=== PATIENT | male | born 1955 | race Caucasian/White ===

== ENCOUNTER 2017-01-24 07:50 | Outpatient (CLI) | payer OTHER | END 2017-01-24 07:51 | disposition home or self-care (01) | DX: Z00.00 Encounter for general adult medical examination without abnormal findings (principal); K76.0 Fatty (change of) liver, not elsewhere classified; Z12.5 Encounter for screening for malignant neoplasm of prostate; K21.9 Gastro-esophageal reflux disease without esophagitis ==

== ENCOUNTER 2017-09-13 08:30 | Outpatient (CLI) | payer OTHER ==
--- NOTE | 2017-09-14 08:35 | XRAY Report ---
EXAM: LUMBOSACRAL SPINE RADIOGRAPHY EXAM DATE: 09/13/2017 10:25 AM. CLINICAL HISTORY: LOW BACK PAIN, CHRONIC. COMPARISONS: None. TECHNIQUE: 3 views. FINDINGS: Alignment: Normal. No spondylolisthesis or scoliosis. Bones: Five uvh-smy-[id number] lumbar vertebral bodies are present. No fractures or bone lesions. Spina bifida occulta at L5. Disks: Disk heights are maintained. Facets: No degenerative changes. Sacroiliac Joints: Unremarkable. Soft Tissues: Phleboliths within the pelvis. The visualized bowel gas pattern is normal. IMPRESSION: Spina bifida occulta at L5. Otherwise, lumbar spine is unremarkable. [facility] Referring Provider Line: [phone] SITE ID: [id number]
== END 2017-09-13 23:59 | disposition home or self-care (01) ==
LOC: DI 08:30
PROVIDERS: ATTEND Family Medicine
DX: Q76.0 Spina bifida occulta (principal)
CPT/HCPCS: 72100

== ENCOUNTER 2017-09-22 16:28 | Outpatient (CLI) | payer OTHER ==
--- NOTE | 2017-09-22 17:46 | MRI Report ---
EXAM: MRI LUMBAR SPINE WITHOUT CONTRAST EXAM DATE: 09/22/2017 05:17 PM. CLINICAL HISTORY: FOOT DROP, PARESTHESIA FEET, LOW BACK PAIN. COMPARISON: Lumbar radiograph 09/13/2017. TECHNIQUE: Multiplanar, multisequence T1-weighted and fluid-sensitive sequences of the lumbar spine f rom T12 to S1 without contrast. Other: None. FINDINGS: Spinal Cord: The conus terminates at T12. The conus medullaris and cauda equina are unremarkable. Alignment: No scoliosis or spondylolisthesis. Bone Marrow: Five snp-upr-mdfriqi lumbar vertebral bodies are assumed. No gross fractures or bone les ions. Typical hemangioma in the inferior L4 vertebrae and at inferior T11 vertebrae. Disk Levels/Facets: T12-L1: Unremarkable. L1-L2: Unremarkable. L2-L3: Disk desiccation. Mild bilateral facet arthropathy. No significant canal or subarticular narro wing. Minimal foraminal narrowing. L3-L4: Disk desiccation. Circumferential bulge, mild bilateral facet arthropathy and ligamentum flavu m thickening. No significant canal or subarticular narrowing. Mild bilateral foraminal narrowing. L4-L5: Disk desiccation and circumferential bulge. Mild bilateral facet arthropathy and ligament flav um thickening. Mild bilateral foraminal narrowing. No significant subarticular narrowing. No signific ant canal narrowing. L5-S1: Unremarkable. Musculature: Normal. No edema or fatty atrophy. Other: The partially visualized retroperitoneum is unremarkable. IMPRESSION: 1. Mild degenerative changes at L2-L3, L3-L4 and L4-L5, most pronounced at L4-L5. 2. At L4-L5, mild disk height loss and disk desiccation, circumferential bulge and mild facet arthrop athy. Mild bilateral foraminal narrowing. Comment: The following findings are so common in adults without low back pain that while we report th eir presence, they must be interpreted with caution and in the context of the clinical situation. (Re bassam Kent et al, Spine 2001) Prevalence of findings in patients without low back pain: Disk degeneration (any evidence): 92% Disk desiccation/T2 signal loss: 83% Disk height loss: 56% Disk bulge: 64% Disk protrusion: 32% Annular tear/high intensity zone: 38% [facility] Referring Provider Line: [phone] SITE ID: [id number]
== END 2017-09-22 16:29 | disposition home or self-care (01) ==
LOC: DI 16:28
PROVIDERS: ATTEND Family Medicine
DX: M47.896 Other spondylosis, lumbar region (principal); M51.36 Other intervertebral disc degeneration, lumbar region
CPT/HCPCS: 72148

== ENCOUNTER 2018-04-14 08:00 | Outpatient (CLI) | payer OTHER ==
[2018-04-14 12:52] LABS: BASOPHILS % (AUTO) 0.9 %; EOSINOPHILS # (AUTO) 0.1 10^3/uL (0.0-0.7); EOSINOPHILS % (AUTO) 1.8 %; HGB - HEMOGLOBIN 14.8 g/dL (14.0-18.0); LYMPHOCYTES # (AUTO) 1.6 10^3/uL (1.5-3.5); LYMPHOCYTES % (AUTO) 36.4 %; MEAN CORPUSCULAR HEMOGLOBIN 33.8 pg (27.0-31.0); MEAN CORPUSCULAR HGB CONC 34.5 g/dL (32.0-36.0); MEAN CORPUSCULAR VOLUME 97.9 fL (80.0-94.0); MEAN PLATELET VOLUME 8.2 fL (7.4-11.4); MONOCYTES # (AUTO) 0.4 10^3/uL (0.0-1.0); MONOCYTES % (AUTO) 9.7 %; NEUTROPHILS # (AUTO) 2.2 10^3/uL (1.5-6.6); NEUTROPHILS % (AUTO) 51.2 %; PLT - PLATELET COUNT 149 10^3/uL (130-450); RED BLOOD COUNT 4.38 10^6/uL (4.70-6.10); RED CELL DISTRIBUTION WIDTH 13.1 % (12.0-15.0); WHITE BLOOD COUNT 4.3 x10^3/uL (4.8-10.8)
[2018-04-14 13:05] LABS: ALBUMIN 3.8 g/dL (3.2-5.5); ALBUMIN/GLOBULIN RATIO 1.4 (1.0-2.2); ALKALINE PHOSPHATASE 36 IU/L (42-121); ALT ALANINE AMINOTRANSFERASE 24 IU/L (10-60); AST ASPARTATE AMINOTRANSFERASE 30 IU/L (10-42); BILIRUBIN,TOTAL 0.8 mg/dL (0.2-1.0); BUN - BLOOD UREA NITROGEN 11 mg/dL (6-20); CALCIUM 8.9 mg/dL (8.5-10.3); CARBON DIOXIDE - CO2 28 mmol/L (21-32); CHLORIDE 104 mmol/L (101-111); CHOL/HDL RATIO 1.9 (<5.0); CHOLESTEROL 133 mg/dL; CREATININE 0.9 mg/dL (0.6-1.2); GFR - MDRD 85 (>89); GLUCOSE 108 mg/dL (70-100); HDL CHOLESTEROL 70 mg/dL; SODIUM 138 mmol/L (135-145); TOTAL PROTEIN 6.6 g/dL (6.7-8.2)
[2018-04-14 13:08] LABS: THYROID STIMULATING HORMONE 2.55 uIU/mL (0.34-5.60)
[2018-04-14 13:21] LABS: HB2 TOTAL 15.7 g/dL; HEMOGLOBIN A1C 0.6 g/dL; HEMOGLOBIN A1C % 5.6 % (4.6-6.2)
[2018-04-14 13:35] LABS: LDL CHOLESTEROL,DIRECT 50 mg/dL; LDLD/HDL RATIO 0.7 (<3.6)
== END 2018-04-14 08:01 | disposition home or self-care (01) ==
LOC: LAB.WCP 08:00
PROVIDERS: ATTEND Family Medicine
DX: Z00.00 Encounter for general adult medical examination without abnormal findings (principal); Z13.220 Encounter for screening for lipoid disorders; K76.0 Fatty (change of) liver, not elsewhere classified; R73.01 Impaired fasting glucose; R20.9 Unspecified disturbances of skin sensation; Z12.5 Encounter for screening for malignant neoplasm of prostate
CPT/HCPCS: 36415; 80053; 80061; 82607; 83036; 83721; 84153; 84443; 85025

== ENCOUNTER 2018-05-14 08:40 | Outpatient (CLI) | payer OTHER ==
[2018-05-14 13:35] LABS: BASOPHILS % (AUTO) 0.8 %; EOSINOPHILS # (AUTO) 0.1 10^3/uL (0.0-0.7); HGB - HEMOGLOBIN 14.8 g/dL (14.0-18.0); LYMPHOCYTES # (AUTO) 1.5 10^3/uL (1.5-3.5); LYMPHOCYTES % (AUTO) 31.3 %; MEAN CORPUSCULAR HEMOGLOBIN 33.7 pg (27.0-31.0); MEAN CORPUSCULAR HGB CONC 35.1 g/dL (32.0-36.0); MEAN PLATELET VOLUME 8.2 fL (7.4-11.4); MONOCYTES # (AUTO) 0.5 10^3/uL (0.0-1.0); MONOCYTES % (AUTO) 10.9 %; NEUTROPHILS # (AUTO) 2.5 10^3/uL (1.5-6.6); PLT - PLATELET COUNT 140 10^3/uL (130-450); RED CELL DISTRIBUTION WIDTH 13.2 % (12.0-15.0); WHITE BLOOD COUNT 4.7 x10^3/uL (4.8-10.8)
== END 2018-05-14 08:41 ==
LOC: LAB.WCP 08:40
PROVIDERS: ATTEND Family Medicine
DX: R79.89 Other specified abnormal findings of blood chemistry (principal)
CPT/HCPCS: 36415; 85025

== ENCOUNTER 2018-12-28 08:00 | Outpatient (CLI) | payer OTHER ==
[2018-12-28 12:21] LABS: BASOPHILS % (AUTO) 0.5 %; EOSINOPHILS % (AUTO) 0.5 %; HGB - HEMOGLOBIN 15.4 g/dL (14.0-18.0); LYMPHOCYTES % (AUTO) 31.2 %; MEAN CORPUSCULAR HEMOGLOBIN 32.8 pg (27.0-31.0); MEAN CORPUSCULAR HGB CONC 34.8 g/dL (32.0-36.0); MEAN CORPUSCULAR VOLUME 94.5 fL (80.0-94.0); MEAN PLATELET VOLUME 7.7 fL (7.4-11.4); MONOCYTES # (AUTO) 0.6 10^3/uL (0.0-1.0); MONOCYTES % (AUTO) 10.3 %; NEUTROPHILS # (AUTO) 3.6 10^3/uL (1.5-6.6); NEUTROPHILS % (AUTO) 57.5 %; PLT - PLATELET COUNT 165 10^3/uL (130-450); RED CELL DISTRIBUTION WIDTH 13.1 % (12.0-15.0); WHITE BLOOD COUNT 6.3 x10^3/uL (4.8-10.8)
[2018-12-28 12:58] LABS: ALBUMIN 3.8 g/dL (3.2-5.5); ALBUMIN/GLOBULIN RATIO 1.2 (1.0-2.2); ALKALINE PHOSPHATASE 31 IU/L (42-121); ALT ALANINE AMINOTRANSFERASE 21 IU/L (10-60); AST ASPARTATE AMINOTRANSFERASE 24 IU/L (10-42); BILIRUBIN,TOTAL 0.9 mg/dL (0.2-1.0); BUN - BLOOD UREA NITROGEN 12 mg/dL (6-20); CALCIUM 9.5 mg/dL (8.5-10.3); CARBON DIOXIDE - CO2 26 mmol/L (21-32); CHLORIDE 94 mmol/L (101-111); CHOL/HDL RATIO 1.7 (<5.0); CHOLESTEROL 144 mg/dL; CREATININE 0.8 mg/dL (0.6-1.2); GFR - MDRD 97 (>89); GLUCOSE 108 mg/dL (70-100); HDL CHOLESTEROL 85 mg/dL; SODIUM 130 mmol/L (135-145); TOTAL PROTEIN 6.9 g/dL (6.7-8.2)
[2018-12-28 13:10] LABS: HB2 TOTAL 17.2 g/dL; HEMOGLOBIN A1C 0.71 g/dL; HEMOGLOBIN A1C % 5.9 % (4.6-6.2)
[2018-12-28 13:23] LABS: LDL CHOLESTEROL,DIRECT 51 mg/dL; LDLD/HDL RATIO 0.6 (<3.6)
== END 2018-12-28 23:59 | disposition home or self-care (01) ==
LOC: LAB.WCP 08:00
PROVIDERS: ATTEND Family Medicine
DX: I10 Essential (primary) hypertension (principal); R73.01 Impaired fasting glucose; Z12.5 Encounter for screening for malignant neoplasm of prostate
CPT/HCPCS: 36415; 80053; 80061; 82306; 83036; 83721; 83970; 84153; 85025

== ENCOUNTER 2019-02-01 09:33 | Outpatient (CLI) | payer OTHER | END 2019-02-01 09:34 | disposition home or self-care (01) | LOC: LAB.WCP 09:33 | PROVIDERS: ATTEND Family Medicine | DX: R20.2 Paresthesia of skin (principal) | CPT/HCPCS: 36415; 84443 ==

== ENCOUNTER 2019-11-22 08:00 | Outpatient (CLI) | payer MEDICARE, OTHER ==
[2019-11-22 11:44] LABS: BASOPHILS % (AUTO) 0.8 %; EOSINOPHILS # (AUTO) 0.1 10^3/uL (0.0-0.7); EOSINOPHILS % (AUTO) 1.5 %; HGB - HEMOGLOBIN 15.7 g/dL (14.0-18.0); LYMPHOCYTES # (AUTO) 1.5 10^3/uL (1.5-3.5); LYMPHOCYTES % (AUTO) 37.6 %; MEAN CORPUSCULAR HEMOGLOBIN 34.5 pg (27.0-31.0); MEAN CORPUSCULAR HGB CONC 35.5 g/dL (32.0-36.0); MEAN CORPUSCULAR VOLUME 97.1 fL (80.0-94.0); MONOCYTES # (AUTO) 0.4 10^3/uL (0.0-1.0); MONOCYTES % (AUTO) 10.6 %; NEUTROPHILS % (AUTO) 49.2 %; PLT - PLATELET COUNT 137 10^3/uL (130-450); RED BLOOD COUNT 4.55 10^6/uL (4.70-6.10)
[2019-11-22 12:42] LABS: ALBUMIN/GLOBULIN RATIO 1.4 (1.0-2.2); ALKALINE PHOSPHATASE 31 IU/L (42-121); ALT ALANINE AMINOTRANSFERASE 27 IU/L (10-60); AST ASPARTATE AMINOTRANSFERASE 29 IU/L (10-42); BILIRUBIN,TOTAL 0.8 mg/dL (0.2-1.0); BUN - BLOOD UREA NITROGEN 12 mg/dL (6-20); CALCIUM 9.3 mg/dL (8.5-10.3); CARBON DIOXIDE - CO2 32 mmol/L (21-32); CHLORIDE 91 mmol/L (101-111); CHOLESTEROL 134 mg/dL; GFR - MDRD 75 (>89); GLUCOSE 117 mg/dL (70-100); HDL CHOLESTEROL 67 mg/dL; LDL CHOLESTEROL,CALCULATED 57 mg/dL; LDL/HDL RATIO 0.9 (<3.6); SODIUM 131 mmol/L (135-145); TOTAL PROTEIN 6.9 g/dL (6.7-8.2); VLDL CHOLESTEROL 10 mg/dL
[2019-11-22 13:21] LABS: HB2 TOTAL 16.1 g/dL; HEMOGLOBIN A1C 0.65 g/dL; HEMOGLOBIN A1C % 5.8 % (4.6-6.2)
== END 2019-11-22 23:59 | disposition home or self-care (01) ==
LOC: LAB.WCP 08:00
PROVIDERS: ATTEND Family Medicine
DX: I10 Essential (primary) hypertension (principal); R73.01 Impaired fasting glucose
CPT/HCPCS: 36415; 80053; 80061; 83036; 83721; 85025

== ENCOUNTER 2021-05-16 14:44 | Outpatient (CLI) | payer MEDICARE, OTHER ==
--- NOTE | 2021-05-16 16:39 | XRAY Report ---
PROCEDURE: Foot 3 View LT INDICATIONS: ACUTE LT FOOT PX TECHNIQUE: 3 views of the foot were acquired. COMPARISON: None FINDINGS: Bones: No fractures or dislocations. No suspicious bony lesions. Severe first MTP degenerative arth ritis. Soft tissues: No tibiotalar joint effusion. Achilles tendon appears normal. IMPRESSION: Severe first MTP degenerative arthritis. No evidence acute bony abnormality of the left foot. If clinical suspicion and/or symptoms persist, further assessment with repeat plain films or advanced imaging (e.g., CT, MRI, or bone scan) may be helpful for further assessment. Reviewed by: Micheal Rizvi MD on 05/16/2021 4:38 PM PDT Approved by: Micheal Rizvi MD on 05/16/2021 4:38 PM PDT Station ID: [id number]
== END 2021-05-16 14:45 | disposition home or self-care (01) ==
LOC: DI 14:44
PROVIDERS: ATTEND Podiatrist
DX: M19.072 Primary osteoarthritis, left ankle and foot (principal)

== ENCOUNTER 2021-07-31 00:48 | Outpatient (CLI) | payer MEDICARE, OTHER | END 2021-07-31 00:49 | disposition critical access hospital (66) | LOC: EMS 00:48 | DX: S00.211A Abrasion of right eyelid and periocular area, initial encounter (principal); W18.30XA Fall on same level, unspecified, initial encounter; Y92.009 Unspecified place in unspecified non-institutional (private) residence as the place of occurrence of the external cause | CPT/HCPCS: A0425; A0429 ==

== ENCOUNTER 2021-07-31 01:06 | Emergency (ER) | payer MEDICARE, OTHER ==
[2021-07-31] MEDS ORDERED: SODIUM CHLORIDE 0.9% 1,000 ML IV STA ×2 (01:14→02:09)
[2021-07-31] MEDS ORDERED: THIAMINE INJ 200 MG in SODIUM CHLORIDE 0.9% 50 ML IV STA (01:14)
[2021-07-31] MEDS ORDERED: BACITRACIN ZINC OINT 1 PACKET TOP STA (01:15)
[2021-07-31] MEDS ORDERED: TETANUS/DIPHTHERIA/PERTUSSIS 0.5 ML SYRINGE IM ONE (01:15)
--- NOTE | 2021-07-31 01:15 | ED Physician Documentation ---
History of Present Illness - Stated complaint Stated Complaint: GLF/HEAD INJ - Chief complaint Chief Complaint: Laceration - History obtained from History obtained from: Patient - Additonal information Additional information: 66yM with pmh anxiety on alprazolam (per chart review), p/w acute intoxication with alcohol. patient states he drank 3 whiskies tonight. Police were called to an apartment next door to his which he apparently was mistakenly trying to get into. Patient was found next to car sitting on ground. ems found him to have normal fingerstick on scene but he had an abrasion to L forehead that he could not explain. patient is AOX2 in the ED (knows his name, location, and that the president is Eunice, but thinks that it is September and responds 2000 when asked the year). Further history limited by clinical intoxication. Review of Systems Unable to obtain: Intoxicated PD PAST MEDICAL HISTORY - Past Medical History Cardiovascular: Hypertension Respiratory: None Endocrine/Autoimmune: None GI: Colon polyps : None HEENT: Other Psych: None Musculoskeletal: None Derm: None - Past Surgical History General: Appendectomy, Colonoscopy - Present Medications Home Medications: Ambulatory Orders Medication Instructions Recorded Confirmed ALPRAZolam [Alprazolam] 0.5 mg PO TID PRN 07/18/17 07/18/17 - Allergies Allergies/Adverse Reactions: Allergies Allergy/AdvReac Type Severity Reaction Status Date / Time morphine Allergy Hallucinati Verified 07/31/21 01:19 ons PD ED PE NORMAL - Vitals Vital signs reviewed: Yes - General General: No acute distress, Well developed/nourished, Other (AOX2) - HEENT HEENT: Atraumatic, PERRL, EOMI, Moist mucous membranes, Pharynx benign, Other (abrasion above L eye) - Neck Neck: No bony TTP - Cardiac Cardiac: RRR - Respiratory Respiratory: No respiratory distress, Clear bilaterally - Abdomen Abdomen: Non tender, Non distended - Back Back: No spinal TTP - Derm Derm: Normal color, Warm and dry - Neuro Neuro: No motor deficit, No sensory deficit - Psych Psych: Other (clinically intoxicated) Results - Vitals Vitals: Vital Signs - 24 hr 07/31/21 07/31/21 07/31/21 01:00 01:14 01:40 Temperature 35.5 C L 35.5 C L Heart Rate 72 72 80 Respiratory 14 14 12 Rate Blood Pressure 135/74 H 135/74 H 107/63 O2 Saturation 97 97 100 07/31/21 07/31/21 07/31/21 01:44 02:05 02:36 Temperature 35.1 C L Heart Rate 82 89 90 Respiratory 13 17 13 Rate Blood Pressure 107/63 118/69 119/80 O2 Saturation 99 98 99 07/31/21 07/31/21 07/31/21 03:00 03:28 03:30 Temperature 36.2 C L 36.3 C L Heart Rate 95 102 H 98 Respiratory 12 12 14 Rate Blood Pressure 115/73 115/73 118/72 O2 Saturation 95 97 95 Oxygen O2 Source Room air - Labs Labs: Laboratory Tests 07/31/21 07/31/21 07/31/21 01:21 01:21 03:30 WBC 6.3 RBC 4.26 L Hgb 14.7 Hct 41.4 L MCV 97.2 H MCH 34.5 H MCHC 35.5 RDW 11.4 L Plt Count 154 MPV 8.4 Neut # (Auto) 5.0 Lymph # (Auto) 1.0 L [place] # (Auto) 0.3 Eos # (Auto) 0.0 Baso # (Auto) 0.0 Absolute Nucleated RBC 0.00 Nucleated RBC % 0.0 Sodium 125 L 128 L Potassium 3.8 3.8 Chloride 87 L 94 L Carbon Dioxide 25 25 Anion Gap 13.0 9.0 BUN 14 16 Creatinine 1.1 0.9 Estimated GFR (MDRD) 67 L 84 L Glucose 169 H 114 H Calcium 8.6 7.5 L Total Bilirubin 0.5 AST 27 ALT 18 Alkaline Phosphatase 46 Total Protein 7.3 Albumin 4.2 Globulin 3.1 Albumin/Globulin Ratio 1.4 Lipase 30 Ethyl Alcohol 264.8 PD MEDICAL DECISION MAKING - ED course ED course: 66yM p/w acute alcohol intoxication and possible head injury. history limited by patient intoxication. will obtain labs, ct, reevaluate. Labwork showed some hyponatremia. d/w hospitalist Dr. Cuellar for possible admission and it was decided we would instead try to hydrate him and recheck BMP in a couple hours. If uptrending and mental status is improving then he can be dc'd home. 4am-patient walking with steady gait to bathroom. now AOX3. endorses drinking large amount of whiskey. states he has had problems with his sodium in past and it is followed by his pmd. advised him that he should have close follow up with his doctor regarding his hyponatremia and should try to cut back on alcohol intake, which may be contributing (patient endorses daily or every other day etoh). will recheck sodium one more time prior to dc. Departure - Departure Clinical Impression: Alcohol abuse, Abrasion
[2021-07-31] MEDS ORDERED: THIAMINE 100 MG/1 ML 2 ML MDV ONE (01:24)
[2021-07-31 01:25] LABS: BASOPHILS % (AUTO) 0.3 %; EOSINOPHILS % (AUTO) 0.2 %; HCT - HEMATOCRIT 41.4 % (42.0-52.0); HGB - HEMOGLOBIN 14.7 g/dL (14.0-18.0); LYMPHOCYTES % (AUTO) 15.2 %; MEAN CORPUSCULAR HEMOGLOBIN 34.5 pg (27.0-31.0); MEAN CORPUSCULAR HGB CONC 35.5 g/dL (32.0-36.0); MEAN CORPUSCULAR VOLUME 97.2 fL (80.0-94.0); MEAN PLATELET VOLUME 8.4 fL (7.4-11.4); MONOCYTES # (AUTO) 0.3 10^3/uL (0.0-1.0); MONOCYTES % (AUTO) 4.8 %; PLT - PLATELET COUNT 154 10^3/uL (130-450); RED BLOOD COUNT 4.26 10^6/uL (4.70-6.10); RED CELL DISTRIBUTION WIDTH 11.4 % (12.0-15.0); WHITE BLOOD COUNT 6.3 x10^3/uL (4.8-10.8)
[2021-07-31 01:36] LABS: ALBUMIN 4.2 g/dL (3.2-5.5); ALBUMIN/GLOBULIN RATIO 1.4 (1.0-2.2); BILIRUBIN,TOTAL 0.5 mg/dL (0.2-1.0); CALCIUM 8.6 mg/dL (8.5-10.3); CREATININE 1.1 mg/dL (0.6-1.2); ETOH - ETHANOL 264.8 mg/dL; POTASSIUM 3.8 mmol/L (3.5-5.0); TOTAL PROTEIN 7.3 g/dL (6.7-8.2)
--- NOTE | 2021-07-31 01:53 | CT Report ---
PROCEDURE: HEAD WO INDICATIONS: Head trauma, mod-severe TECHNIQUE: Noncontrast 4.5 mm thick angled axial sections acquired from the foramen magnum to the vertex. For r adiation dose reduction, the following was used: automated exposure control, adjustment of mA and/or kV according to patient size. COMPARISON: None. FINDINGS: Image quality: Excellent. CSF spaces: Basal cisterns are patent. No extra-axial fluid collections. Ventricles are normal in size and shape. Brain: No midline shift. No intracranial masses or hemorrhage. Villagomez-white matter interface is norm al. Skull and face: Calvarium and visualized facial bones are intact, without suspicious lesions. Sinuses: Visualized sinuses and mastoids are clear. IMPRESSION: No acute intracranial abnormality. Reviewed by: Lake Parnell MD on 07/31/2021 1:52 AM PST Approved by: Lake Parnell MD on 07/31/2021 1:52 AM [facility] Station ID: [id number]
--- NOTE | 2021-07-31 01:56 | CT Report ---
PROCEDURE: CERVICAL SPINE WO INDICATIONS: Neck trauma, midline tenderness TECHNIQUE: Noncontrast 3 mm thick sections acquired from the skull base to the T4 level. Sagittal and coronal r eformats were then constructed. For radiation dose reduction, the following was used: automated exp osure control, adjustment of mA and/or kV according to patient size. COMPARISON: None. FINDINGS: Image quality: Excellent. Bones: No fractures or dislocations. Visualized superior ribs are intact. Anterior fusion hardware at C5-C7 is present. Soft tissues: Prevertebral soft tissues are normal in thickness. No paravertebral hematomas. No ap ical pneumothoraces. IMPRESSION: No fracture. Reviewed by: Lake Parnell MD on 07/31/2021 1:54 AM [facility] Approved by: Lake Parnell MD on 07/31/2021 1:54 AM [facility] Station ID: [id number]
[2021-07-31 03:54] LABS: CALCIUM 7.5 mg/dL (8.5-10.3); CREATININE 0.9 mg/dL (0.6-1.2); POTASSIUM 3.8 mmol/L (3.5-5.0)
[2021-07-31] MEDS ORDERED: SODIUM BICARBONATE ABBOJECT 50 MEQ/50 ML SYRINGE IVP STA (04:05)
[2021-07-31 04:16] LABS: MUDS CUTOFF CONCENTRATIONS CUTOFF CONC BELOW:
[2021-07-31 04:25] LABS: AMPHETAMINE SCREEN,URINE NEGATIVE (NEGATIVE); BARBITURATE SCREEN,UR NEGATIVE (NEGATIVE); BENZODIAZEPINES SCREEN, URINE POSITIVE (NEGATIVE); COCAINE SCREEN URINE NEGATIVE (NEGATIVE); METHADONE SCREEN, URINE NEGATIVE (NEGATIVE); METHAMPHETAMINES SCREEN, URINE NEGATIVE (NEGATIVE); OPIATE SCREEN, URINE NEGATIVE (NEGATIVE); OXYCODONE SCREEN, URINE NEGATIVE (NEGATIVE); PROPOXYPHENE SCREEN, URINE NEGATIVE (NEGATIVE); THC CANNABINOID SCREEN, URINE NEGATIVE (NEGATIVE); TRICYCLIC ANTIDEPRESSANT,URINE NEGATIVE (NEGATIVE)
[2021-07-31] MEDS ORDERED: SODIUM CHLORIDE 0.9% 500 ML IV STA (04:57)
[2021-07-31 06:08] VITALS: BP 125/75
== END 2021-07-31 06:08 | disposition home or self-care (01) ==
LOC: EDUNIT# → ED 01:06 → SUPCPDRO 01:06 → ED 06:08
DX: F10.129 Alcohol abuse with intoxication, unspecified (principal); E87.1 Hypo-osmolality and hyponatremia; S00.212A Abrasion of left eyelid and periocular area, initial encounter; X58.XXXA Exposure to other specified factors, initial encounter
CPT/HCPCS: 36415; 70450; 72125; 80048; 80053; 80306; 83690; 84295; 85025; 90471; 90715; 96361; 96365; 96375; 99283; 99284; A9270; G0480; J3411; J7040; 80320

== ENCOUNTER 2021-11-01 16:45 | Outpatient (CLI) | payer MEDICARE, OTHER | END 2021-11-01 23:59 | disposition short-term general hospital (02) | LOC: EMS 16:45 | DX: R07.89 Other chest pain (principal); R42 Dizziness and giddiness; R53.1 Weakness | CPT/HCPCS: A0425; A0427 ==

== ENCOUNTER 2023-01-30 09:20 | Outpatient (CLI) | payer MEDICARE, OTHER ==
--- NOTE | 2023-01-30 10:16 | Sleep Patient Instructions ---
Sleep Center Visit Summary - Patient Visit Information Reason for Visit: Initial consult for evaluation of sleep disordered breathing and other sleep issues. - Patient Instructions Instructions Attached: Sleep Study, Sleep Clinic Visit Additional Instructions: You will be completing a sleep study, either an in-lab polysomnography (PSG) or home sleep study (HST). You will follow-up in the sleep care office after the sleep study is completed to hear the results and talk about therapy, if needed. You will be called by our office staff to schedule this appointment, but you may contact us with any questions. - Clinic Information Contact: [facility] [address] [place] [address] [email or web address] T: [phone]
--- NOTE | 2023-01-30 10:19 | SLEEP CARE CONSULTATION ---
Information from patient questionnaire entered by Casandra Machado. I have reviewed and concur with the information entered by Casandra Machado. This document represents the service I personally performed and the decisions made by me, Annie Roberts ARNP. History of Present Illness Service Date and Time: 01/30/2023 0920 Reason for Visit: New patient Accompanied by: Spouse (Kaylan) Chief Complaint: reports: Excessive daytime sleepiness, Frequent awakenings at night Date of Onset: FEW YRS Usual bedtime: 9PM Time it takes to fall asleep: NOT LONG Snores at night: Yes (a little bit sometimes, when on his back) Observed to quit breathing while asleep: No Sleeps alone due to snoring: No Number of times waking at night: 3-5 Reasons for waking at night: reports: Choking (coughing), Gasping for air (oxygen level in 80s), Bathroom, Other (drenched in sweat occasionally). denies: Snoring Toss, Turn, or Twitch while sleeping: Yes (twitches all night long, according to ) Recalls having dreams: Yes (also has nightmares) Usually gets out of bed at: 6-7AM Feels refreshed in the morning: No Morning headache: No Sleepy or fatigued during the day: Yes Ever fallen asleep while driving: No Takes day naps: Yes (daily for 1-1.5 hours) Dreams during day naps: No Prior sleep studies: No Additional HPI information: I had the pleasure of seeing JORGE LUIS DUMONT today regarding the possibility of him having a sleep disorder. His current complaints are excessive daytime sleepiness and frequent night awakenings. His accompanies him today. She states he snores when he is sleeping on his back but he sleeps mostly on his side. He states he does not wake up feeling refreshed in the morning. He also takes a nap every day. He has been having issues with his oxygen level decreasing and has oxygen at home that he uses as needed. - Parasomnia Symptoms Ever been unable to move upon waking from sleep: No Walks in sleep: No Talks in sleep: Yes (mumbling and some distinct words) Ever acted out dreams in sleep: No Ever felt weak in the knees when startled or emotional: No Bothered by creepy, crawly, restless sensations in legs: Yes (has peripheral neuropathy) Problems with memory or concentration: No Subjective Initial [place] Sleepiness Scale score: 9 (01/30/23) Past Medical History Past Medical History: reports: Hypertension, Arthritis, Anxiety, GERD, Other (hypoxemia recently, has oxygen as needed; peripheral neuropathy) Social History The patient's occupation is a RE. Patient is and lives in [place]. Have you smoked in the past 12 months: No Years of smokin Quit date: 1976 Alcohol use: Yes Alcohol amount and frequency: VARIES Caffeine use: No Family History Family history of sleep disordered breathing: Yes Family Hx Sleep Apnea: Mother: Snoring, Father: Snoring, Grandparent: Snoring Allergies and Home Medications Known drug allergies: Yes (CITOLOPRAM DICLOFENAC BETA BLOCKERS MORPHINE) Drug allergies reviewed: Yes Home medication list reviewed: Yes (see updated list in EMR) Allergy and home medication list: Allergies morphine Allergy (Verified 01/29/23 14:59) Hallucinations Review of Systems Cardiovascular: reports: high blood pressure, chest pain Respiratory: reports: shortness of breath, chronic cough Neurological: denies: headaches, seizure Psychiatric: reports: anxiety. denies: depression, mood disorder Ear/Nose/Throat: reports: nasal congestion, hoarseness, wisdom teeth removed. denies: tonsillectomy Endocrine: reports: sluggishness Musculoskeletal: reports: neck pain, back pain Immunologic: reports: allergies to food or environment (Trees) Physical Exam Vital signs obtained and entered by: CASANDRA Duenas MA Blood Pressure: 134/82 (LEFT ARM) Cuff size: regular Heart Rate: 84 O2 Saturation: 98 Height: 5 ft 6 in Weight: 176 lb Body Mass Index: 28.4 BMI Classification: Overweight Neck circumference: 16.5 Mouth and throat: narrow oropharynx Soft palate: long Hard palate: normal Uvula: normal Uvula visualization: 25% Mallampati Class III Tongue: enlarged in size with teeth menendez on lateral edges Tonsils: 1+ Neck: normal w/o lymphadenopathy or thyromegaly Heart: regular rate and rhythm Lungs: clear bilaterally Impression and Plan 1. Suspected Obstructive Sleep Apnea-Hypopnea Syndrome, as suggested by a history of irregular snoring, gasping or choking in sleep, frequent awakening during the night, unrefreshed sleep, and excessive daytime sleepiness. Narrow oropharynx and obesity are common predisposing factors for obstructive sleep apnea-hypopnea syndrome. I recommend proceeding to polysomnography to confirm the diagnosis and to assess severity. If the patient has significant sleep disordered breathing, a manual CPAP titration study will also be performed to find the optimal treatment pressure. I informed the patient of what the sleep studies involve and after some discussion, obtained agreement to proceed. The pathophysiology of obstructive sleep apnea-hypopnea syndrome was discussed with the patient and health risks of cardiovascular and cerebrovascular disease if not treated. Risks of drowsy driving discussed in detail and patient advised to avoid long distance driving and to bone char puller at the first sign of drowsiness. Patient agreed to plan. * Schedule polysomnography +- manual CPAP titration study and return in 1-2 weeks after the study to discuss result and initiate therapy. * Avoid long distance driving or driving when feeling sleepy. * Avoid alcohol, sedative and muscle relaxant around bedtime. * Attempt to lose weight. * Review instructions provided by trained office staff on how to prepare for the sleep study. * Return for follow-up after sleep study completed. Counseling Topics: Weight loss health impact Visit Type: In Office Other Participants: Spouse/Significant Other Time Spent with Patient (minutes): 33 Provider Statement: I spent 100% of the Face to Face Visit with the patient with greater than 50% spent counseling the patient and coordination of care.
[2023-01-30 10:21] VITALS: BP 134/82
== END 2023-01-30 09:21 | disposition home or self-care (01) ==
LOC: SC 09:20
PROVIDERS: ATTEND Nurse Practitioner Family
DX: G47.10 Hypersomnia, unspecified (principal); G47.8 Other sleep disorders; R06.83 Snoring; I10 Essential (primary) hypertension; E66.3 Overweight; Z68.28 Body mass index [BMI] 28.0-28.9, adult
CPT/HCPCS: 99203; G0463; 99212

== ENCOUNTER 2023-02-18 21:46 | Outpatient (CLI) | payer MEDICARE, OTHER | END 2023-02-18 21:47 | disposition home or self-care (01) | LOC: SC 21:46 | PROVIDERS: ATTEND Nurse Practitioner Family | DX: R09.02 Hypoxemia (principal); G47.61 Periodic limb movement disorder | CPT/HCPCS: 95810 ==

== ENCOUNTER 2023-03-05 11:23 | Outpatient (CLI) | payer MEDICARE, OTHER ==
--- NOTE | 2023-03-05 12:13 | SLEEP CARE CONSULTATION ---
Information from patient questionnaire entered by Casandra Machado. I have reviewed and concur with the information entered by Casandra Machado. This document represents the service I personally performed and the decisions made by , Annie Roberts ARNP. History of Present Illness Service Date and Time: 03/05/2023 1123 Accompanied by: Spouse Initial [place] Sleepiness Scale score: 9 (01/30/23) Current [place] Sleepiness Scale score: 12 (03/05/23) Additional HPI information: JORGE LUIS DUMONT returns for follow up and results of the recently performed polysomnography. The patient was informed of the following findings: No significant sleep disordered breathing with an average AHI of 2.5 and apryl oxygen saturation of 84%. Patient did not sleep supine during study. Severe PLMs contributing to sleep fragmentation. I explained the pathophysiology behind obstructive sleep apnea. Patient does not have sleep apnea and was advised how weight gain could increase the risk of developing sleep apnea in the future. I strongly encouraged the patient to lose weight. Patient has loud snoring. Snoring can be reduced by weight loss. Weight loss is best achieved with diet consult. Patient instructed to contact PCP for referral. Snoring can also be treated with an oral appliance from a dentist. Advised to check insurance coverage. In addition, an ENT evaluation can be do to see if other treatment is indicated. Patient was cautioned about risks of drowsy driving until sleepiness symptoms resolve. Sleep Study - Results Type of Sleep Study: Polysomnography (COMPLETED 02/18/23) Prior sleep studies: No Polysomnography/Home Sleep Study results: IMPRESSION: The quality of the study is good. The patient had reduced sleep efficiency due to a prolonged awakening in the first half of the night. The sleep architecture was abnormal for sleep fragmentation and lack of slow wave sleep (N3). Respiratory monitoring showed no significant sleep disordered breathing (AHI = 2.5). There was mild hypoxia (mean oxygen saturation of 90% and apryl oxygen saturation of 84%). The patient did not sleep supine during this study (supine AHI = 0; non-supine = 2.46). Snore was light to loud in intensity. There was severe periodic leg movement of sleep contributing to the sleep fragmentation. Cardiac rhythm was normal sinus rhythm without significant arrhythmia. No abnormal behavior (parasomnia) observed during the night. Allergies and Home Medications Known drug allergies: Yes (as listed) Drug allergies reviewed: Yes Home medication list reviewed: Yes (no changes) Allergy and home medication list: Allergies morphine Allergy (Verified 03/04/23 14:23) Hallucinations citalopram Adverse Reaction (Verified 03/04/23 14:23) diclofenac Adverse Reaction (Verified 03/04/23 14:23) lisinopril Adverse Reaction (Verified 03/04/23 14:23) BETA BLOCKERS Allergy (Uncoded 03/04/23 14:23) Review of Systems Review of systems same as previous: Yes (no changes) Physical Exam Vital signs obtained and entered by: CASANDRA Duenas MA Blood Pressure: 142/96 (LEFT ARM) Cuff size: regular Heart Rate: 99 O2 Saturation: 98 Height: 5 ft 6 in Weight: 174 lb Body Mass Index: 28.0 BMI Classification: Overweight Impression and Plan 1. Hypoxemia, mild, with a apryl oxygen saturation of 84% and 33.6 minutes spent under 90%. His baseline oxygen saturation was low normal with an average oxygen saturation of 89.5-90%. Patient was advised that further evaluation for cardiopulmonary disorders may be warranted due to low oxygen baseline. He currently is being evaluated by pulmonology and has seen recoating machine operator. He has oxygen at home for his use now. I advised that he speak with current primary and pulmonary doctors about when to use the oxygen. 2. Snoring but no significant sleep disordered breathing. Patient advised that often weight loss will reduce snoring as well as apnea risk. An oral appliance can also be used for snoring. This would require a dental consultation. Patient cautioned not to use other online appliances as can cause bite issues. Patient is advised to check if insurance will cover. An ENT consult can also be helpful to determine if any other treatment is an option. 3. Periodic limb movement, severe, that did not fragment patients sleep. Periodic limb movement of sleep (PLMS) is characterized by episodes of repetitive limb movements that occur during sleep and usually involve the lower limbs. The etiology is unknown. Caffeine can aggravate PLMS and should be avoided. Sleep hygiene methods can also improve sleep as well as lifestyle changes such as regular exercise. Patient was advised that no treatment is needed at this time. If symptoms increase, then further evaluation is indicated. * Follow up with primary for mild hypoxemia and severe PLMs noted during study. * Attempt to lose weight * Avoid alcohol consumption near bedtime * The patient is cautioned about driving until sleepiness is completely resolved. * Return as needed for follow up. Counseling Topics: Weight loss health impact Visit Type: In Office Time Spent with Patient (minutes): 16 Provider Statement: I spent 100% of the Face to Face Visit with the patient with greater than 50% spent counseling the patient and coordination of care.
[2023-03-05 12:18] VITALS: BP 142/96
== END 2023-03-05 11:24 | disposition home or self-care (01) ==
LOC: SC 11:23
PROVIDERS: ATTEND Nurse Practitioner Family
DX: R09.02 Hypoxemia (principal); R06.83 Snoring; G47.61 Periodic limb movement disorder; E66.3 Overweight; Z68.28 Body mass index [BMI] 28.0-28.9, adult
CPT/HCPCS: 99212; G0463